=== PATIENT | male | born 1975 | race Caucasian/White ===

== ENCOUNTER 2022-08-10 15:28 | Emergency (ER) | payer BC ==
[2022-08-10] MEDS ORDERED: MORPHINE SULFATE 4 MG INJ IV ONE (16:17)
[2022-08-10] MEDS ORDERED: PROTONIX 40 MG IV IV ONE ×2 (16:17→16:20)
[2022-08-10] MEDS ORDERED: Zofran 4 MG/2 ML VIAL IV ONE (16:17)
[2022-08-10] MEDS ORDERED: GI COCKTAIL 45 ML (Maalox/Lidocaine) PO ONE (16:17)
[2022-08-10] MEDS ORDERED: Zofran 4 MG/2 ML VIAL ONE (16:20)
[2022-08-10] MEDS ORDERED: MORPHINE SULFATE 4 MG INJ ONE (16:21)
[2022-08-10] MEDS ORDERED: XYLOCAINE VISCOUS 2% 15 ML CUP ONE (16:21)
[2022-08-10] MEDS ORDERED: MAALOX ES 30 ML UNIT DOSE ONE (16:21)
[2022-08-10 16:34] LABS: Appearance CLEAR (CLEAR); Bilirubin SMALL (NEGATIVE); Glucose NEGATIVE (NEGATIVE); Ketones LARGE-160 (NEGATIVE); Ph 5.5 (5-6); Protein,Urine Dip 30 (Negative); RBC NEGATIVE Ery/ul (0-5); Specific Gravity >=1.030 (1.005-1.025)
[2022-08-10 16:35] LABS: Dipstick done @ ? MAIN LAB; Nitrite NEGATIVE (NEGATIVE); Urobilinogen 0.2 mg/dL (0-1)
[2022-08-10 16:35] LABS: Absolute Neutrophil Ct (ANC) 5.91 x10^3/uL (1.4-6.9); Basophil (Absolute #) 0.03 x10^3/uL (0-0.4); Eosinophil % 1.2 % (0.00-5.0); Hematocrit 46.9 % (42-50); Hemoglobin 15.7 g/dL (12.5-18.0); Lymphocyte (Absolute #) 1.97 x10^3/uL (1.0-4.6); Lymphocytes % 23.5 % (24.0-44.0); Mean Cell Volume 88.7 fL (78-100); Mean Corpuscular Hemoglobin 29.7 pg (26-32); Mean Corpuscular Hgb Concent. 33.5 g/dL (32-36); Mean Platelet Volume 9.8 fL (7.5-11.0); Monocyte (Absolute #) 0.38 x10^3/uL (0.0-1.3); Monocytes % 4.5 % (0.0-12.0); Neutrophil % 70.3 % (36.0-66.0); Platelet Count 216 x10^3/uL (150-450); Red Blood Count 5.29 x10^6/uL (4.1-5.6); Red Cell Distribution Width 12.2 % (11.5-14.0); White Blood Count 8.4 x10^3/uL (4.0-10.5)
--- NOTE | 2022-08-10 16:51 | XRAY ---
Indication: Abdomen pain and diarrhea. Multiple contiguous axial images obtained through the abdomen and pelvis without contrast. Comparison: None Lung bases demonstrates mild dependent atelectasis and tiny right base calcified granuloma. Heart not enlarged. Stomach is distended with food/fluid. Noncontrasted stomach and bowel loops appear nonobstructed with normal appendix. Mild scattered colonic diverticulosis without diverticulitis. No free fluid/air. Tiny splenic calcified granulomas. Remaining liver, gallbladder, pancreas, spleen, adrenal glands, kidneys, ureters, and bladder are unremarkable for noncontrast exam. Minimal aortic calcifications without AAA. Osseous structures intact with minimal degenerative changes throughout the spine. No ventral or inguinal hernias. Impression: 1. Colonic diverticulosis, minimal arteriosclerotic disease, minimal degenerative spondylosis, and old granulomatous disease. 2. Remaining CT abdomen without contrast exam is negative.
[2022-08-10 16:54] LABS: Epithelial Cells RARE /HPF (FEW); Mucus MANY /HPF (NEGATIVE); RBC 0-2 /HPF (0-2); Sperm PRESENT /HPF (NEGATIVE); WBC 0-2 /HPF (0-5)
[2022-08-10 16:57] LABS: Urine Cultured Indicated? NO
[2022-08-10 16:57] LABS: ALBUMIN 4.2 g/dL (3.5-5.0); ALKALINE PHOSPHATASE 51 U/L (38-126); AMYLASE 60 U/L (30-110); ANION GAP 9.4 MEQ/L (5-15); BLOOD UREA NITROGEN 18 mg/dL (9-20); CHLORIDE 108 mmol/L (98-107); Calcium 8.7 mg/dL (8.4-10.2); Carbon Dioxide 26 mmol/L (22-30); Creatinine 1 1.05 mg/dL (0.66-1.25); EST GLOMERULAR FILTRATION RATE > 60.0 ML/MIN; Glucose 112 mg/dL (74-106); LIPASE 103 U/L (23-300); Potassium 3.3 mmol/L (3.5-5.1); SGOT/AST 32 U/L (17-59); SGPT/ALT 40 U/L (0-50); SODIUM 140 mmol/L (137-145); Total Protein 6.7 g/dL (6.3-8.2)
[2022-08-10] MEDS ORDERED: Sodium Chloride 0.9% 1000 ML 1,000 ML IV STA (17:05)
[2022-08-10] MEDS ORDERED: Sodium Chloride 0.9% 1000 ML 1,000 ML ONE (17:08)
--- NOTE | 2022-08-10 17:51 | ERPHSYRPT ---
- History of Present Illness Time Seen by Provider: 08/10/22 15:42 Historian: patient Exam Limitations: no limitations Patient Subjective Stated Complaint: Pt reports "I have this pressure type pain in the middle of the upper part of my stomach and it goes all the way up my throat. I have had this for 6-7 days. [facility] they told me to come here." Triage Nursing Assessment: Patient ambulated to cot with upright steady gait. Alert and oriented x3. No apparent respiratory distress. Pt complains of epigastric pain that is described as a constant pressure that goes up into his throat for at least 6-7 days. He went to [facility] but they sent him to the ED. Physician History: 46 years old male with history of GERD with esophagitis and sent in ER from urgent care for worsening upper abdominal discomfort off and on for last few weeks which lately is really bad and radiation and burning sensation to the chest and throat. Partial relief with taking omeprazole and Carafate. No fever chills, nausea vomiting or diarrhea reported. Timing/Duration: week(s) (4-6), intermittent, gradual onset, worse Activities at Onset: rest Quality: burning Abdominal Pain Onset Location: epigastric Pain Radiation: chest Severity of Pain-Max: moderate Severity of Pain-Current: moderate Modifying Factors: Improves With: nothing Associated Symptoms: denies symptoms Previous symptoms: same symptoms as today Allergies/Adverse Reactions: No Known Drug Allergies Allergy (Unverified 08/10/22 15:33) Home Medications: Omeprazole 40 mg PO DAILY 08/10/22 [History] Sucralfate 1 gm PO AC 08/10/22 [History] Hx Tetanus, Diphtheria Vaccination/Date Given: No Hx Influenza Vaccination/Date Given: No Immunizations Up to Date: No Travel Risk - International Travel Have you traveled outside of the country in past 3 weeks: No - Coronavirus Screening Are you exhibiting any of the following symptoms?: No Close contact with a COVID-19 positive Pt in past 14-21 Days: No - Vaccine Status Have you recieved a Covid-19 vaccination: Yes Distribution [employer]: [email or web address] - Vaccination Dates Date of 2cond Vaccination (if applicable): unknown - Review of Systems Constitutional: No Symptoms Eyes: No Symptoms Ears, Nose, & Throat: No Symptoms Respiratory: No Symptoms Cardiac: No Symptoms Abdominal/Gastrointestinal: Abdominal Pain Genitourinary Symptoms: No Symptoms Musculoskeletal: No Symptoms Neurological: No Symptoms Psychological: No Symptoms Endocrine: No Symptoms Hematologic/Lymphatic: No Symptoms Immunological/Allergic: No Symptoms - Past Medical History Pertinent Past Medical History: Yes Neurological History: No Pertinent History Cardiac History: No Pertinent History Respiratory History: No Pertinent History Endocrine Medical History: No Pertinent History Musculoskeletal History: Fractures GI Medical History: GERD Psycho-Social History: Anxiety, Depression - Past Surgical History Past Surgical History: Yes Other Surgical History: 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, broken jaw repair - Social History Smoking Status: Former smoker How long have you smoked: 20 years Exposure to second hand smoke: No Drug Use: none Patient Lives Alone: No - Nursing Vital Signs Nursing Vital Signs: Initial Vital Signs Temperature 98 F 08/10/22 15:31 Pulse Rate 78 08/10/22 15:31 Respiratory Rate 16 08/10/22 15:31 Blood Pressure 145/93 08/10/22 15:31 O2 Sat by Pulse Oximetry 97 08/10/22 15:31 Pain Scale Pain Intensity 5 - Physical Exam General Appearance: no apparent distress, alert Eye Exam: PERRL/EOMI Ears, Nose, Throat Exam: normal ENT inspection Neck Exam: normal inspection, full range of motion Respiratory Exam: normal breath sounds, lungs clear Cardiovascular Exam: regular rate/rhythm, normal heart sounds Gastrointestinal/Abdomen Exam: soft, normal bowel sounds, tenderness (Epigastric area), No guarding Back Exam: normal inspection Extremity Exam: normal inspection, normal range of motion Neurologic Exam: alert, oriented x 3, cooperative Skin Exam: normal color, warm SpO2 Interpretation: normal SpO2: 95 O2 Delivery: Room Air Ordered Tests: Active Orders 24 hr Category Date Time Status IV Insertion STAT Care 08/10/22 16:17 Active NPO (ED) STAT Care 08/10/22 16:17 Active ABDOMEN AND PELVIS W/0 CONTRAS [CT] Stat Exams 08/10/22 16:17 Completed AMYLASE Stat Lab 08/10/22 16:25 Completed CBC W DIFF Stat Lab 08/10/22 16:25 Completed CMP Stat Lab 08/10/22 16:25 Completed LIPASE Stat Lab 08/10/22 16:25 Completed Lactic Acid Stat Lab 08/10/22 16:30 Completed TROPONIN Q4H Lab 08/10/22 16:25 Completed TROPONIN Q4H Lab 08/10/22 20:30 Ordered TROPONIN Q4H Lab 08/11/22 00:30 Ordered UA W/RFX CULTURE Stat Lab 08/10/22 Completed Medication Summary Generic Name Dose Route Start Last Admin Trade Name Lukasz PRN Reason Stop Dose Admin Sodium Chloride 1,000 mls @ 999 mls/hr 08/10/22 17:05 08/10/22 17:08 Sodium Chloride 0.9% 1000 Ml IV 08/10/22 18:05 999 mls/hr .Q1H1M STA Administration Discontinued Medications Generic Name Dose Route Start Last Admin Trade Name Lukasz PRN Reason Stop Dose Admin Al Hydrox/Mg Hydrox/Simethicone Confirm 08/10/22 16:21 Mag Hydrox/Al Hydrox/Simeth 30 Ml Udcup Administered 08/10/22 16:22 Dose 30 ml .ROUTE .STK-MED ONE Sodium Chloride Confirm 08/10/22 17:08 Sodium Chloride 0.9% 1000 Ml Administered 08/10/22 17:09 Dose 1,000 mls @ ud .ROUTE .STK-MED ONE Lidocaine HCl Confirm 08/10/22 16:21 Lidocaine Hcl 2% Viscous 15 Ml Udcup Administered 08/10/22 16:22 Dose 15 ml .ROUTE .STK-MED ONE Magnesium Hydroxide 45 ml 08/10/22 16:17 08/10/22 16:23 Mag Hydrx/Alum Hyd/Simeth/Lido 45 Ml Bottle PO 08/10/22 16:18 45 ml STAT ONE Administration Morphine Sulfate 4 mg 08/10/22 16:17 08/10/22 16:23 Morphine Sulfate 4 Mg/Ml Injection IV 08/10/22 16:18 4 mg STAT ONE Administration Morphine Sulfate Confirm 08/10/22 16:21 Morphine Sulfate 4 Mg/Ml Injection Administered 08/10/22 16:22 Dose 4 mg .ROUTE .STK-MED ONE Ondansetron HCl 4 mg 08/10/22 16:17 08/10/22 16:24 Ondansetron Hcl 4 Mg/2 Ml Vial IV 08/10/22 16:18 4 mg STAT ONE Administration Ondansetron HCl Confirm 08/10/22 16:20 Ondansetron Hcl 4 Mg/2 Ml Vial Administered 08/10/22 16:21 Dose 4 mg .ROUTE .STK-MED ONE Pantoprazole Sodium 40 mg 08/10/22 16:17 08/10/22 16:23 Pantoprazole 40 Mg Vial IV 08/10/22 16:18 40 mg STAT ONE Administration Pantoprazole Sodium Confirm 08/10/22 16:20 Pantoprazole 40 Mg Vial Administered 08/10/22 16:21 Dose 40 mg IV .STK-MED ONE Lab/Rad Data: Laboratory Result Diagrams 08/10/22 16:25 08/10/22 16:25 Laboratory Results 08/10/22 08/10/22 08/10/22 Range/Units Unknown 16:30 16:25 WBC (4.0-10.5) x10^3/uL RBC (4.1-5.6) x10^6/uL Hgb (12.5-18.0) g/dL Hct (42-50) % MCV (78-100) fL MCH (26-32) pg MCHC (32-36) g/dL RDW (11.5-14.0) % Plt Count (150-450) x10^3/uL MPV (7.5-11.0) fL Gran % (36.0-66.0) % Immature Gran % (Auto) (0.00-0.4) % Nucleat RBC Rel Count (0.00-0.1) % Eos # (Auto) (0-0.5) x10^3/uL Immature Gran # (Auto) (0.00-0.03) x10^3u/L Absolute Lymphs (auto) (1.0-4.6) x10^3/uL Absolute Monos (auto) (0.0-1.3) x10^3/uL Absolute Nucleated RBC (0.00-0.01) x10^3u/L Lymphocytes % (24.0-44.0) % Monocytes % (0.0-12.0) % Eosinophils % (0.00-5.0) % Basophils % (0.0-0.4) % Absolute Granulocytes (1.4-6.9) x10^3/uL Basophils # (0-0.4) x10^3/uL Sodium (137-145) mmol/L Potassium (3.5-5.1) mmol/L Chloride (98-107) mmol/L Carbon Dioxide (22-30) mmol/L Anion Gap (5-15) MEQ/L BUN (9-20) mg/dL Creatinine (0.66-1.25) mg/dL Estimated GFR ML/MIN Glucose (74-106) mg/dL Lactic Acid 0.7 (0.4-2.0) Calcium (8.4-10.2) mg/dL Total Bilirubin (0.2-1.3) mg/dL AST (17-59) U/L ALT (0-50) U/L Alkaline Phosphatase (38-126) U/L Troponin I < 0.012 (0.000-0.034) ng/mL Serum Total Protein (6.3-8.2) g/dL Albumin (3.5-5.0) g/dL Amylase (30-110) U/L Lipase (23-300) U/L Urinalys Dipstick Clnc MAIN LAB Urine Color YELLOW (YELLOW) Urine Appearance CLEAR (CLEAR) Urine pH 5.5 (5-6) Ur Specific [place] >=1.030 A (1.005-1.025) POC Urine Protein Conf 30 A (Negative) Urine Ketones LARGE-160 A (NEGATIVE) Urine Nitrite NEGATIVE (NEGATIVE) Urine Bilirubin SMALL A (NEGATIVE) Urine Urobilinogen 0.2 (0-1) mg/dL Urine Leukocytes NEGATIVE (NEGATIVE) Urine WBC (Auto) 0-2 (0-5) /HPF Urine RBC (Auto) 0-2 (0-2) /HPF U Hyaline Cast (Auto) 6-10 A (0-2) /LPF U Epithel Cells (Auto) RARE (FEW) /HPF Urine Bacteria (Auto) Not Reportable Urine RBC NEGATIVE (0-5) Thompson/ul Urine Mucus (Auto) MANY A (NEGATIVE) /HPF Urine Sperm (Auto) PRESENT A (NEGATIVE) /HPF Ur Culture Indicated? NO Urine Glucose NEGATIVE (NEGATIVE) mg/dL 08/10/22 08/10/22 Range/Units 16:25 16:25 WBC 8.4 (4.0-10.5) x10^3/uL RBC 5.29 (4.1-5.6) x10^6/uL Hgb 15.7 (12.5-18.0) g/dL Hct 46.9 (42-50) % MCV 88.7 (78-100) fL MCH 29.7 (26-32) pg MCHC 33.5 (32-36) g/dL RDW 12.2 (11.5-14.0) % Plt Count 216 (150-450) x10^3/uL MPV 9.8 (7.5-11.0) fL Gran % 70.3 H (36.0-66.0) % Immature Gran % (Auto) 0.1 (0.00-0.4) % Nucleat RBC Rel Count 0.0 (0.00-0.1) % Eos # (Auto) 0.10 (0-0.5) x10^3/uL Immature Gran # (Auto) 0.01 (0.00-0.03) x10^3u/L Absolute Lymphs (auto) 1.97 (1.0-4.6) x10^3/uL Absolute Monos (auto) 0.38 (0.0-1.3) x10^3/uL Absolute Nucleated RBC 0.00 (0.00-0.01) x10^3u/L Lymphocytes % 23.5 L (24.0-44.0) % Monocytes % 4.5 (0.0-12.0) % Eosinophils % 1.2 (0.00-5.0) % Basophils % 0.4 (0.0-0.4) % Absolute Granulocytes 5.91 (1.4-6.9) x10^3/uL Basophils # 0.03 (0-0.4) x10^3/uL Sodium 140 (137-145) mmol/L Potassium 3.3 L (3.5-5.1) mmol/L Chloride 108 H (98-107) mmol/L Carbon Dioxide 26 (22-30) mmol/L Anion Gap 9.4 (5-15) MEQ/L BUN 18 (9-20) mg/dL Creatinine 1.05 (0.66-1.25) mg/dL Estimated GFR > 60.0 ML/MIN Glucose 112 H (74-106) mg/dL Lactic Acid (0.4-2.0) Calcium 8.7 (8.4-10.2) mg/dL Total Bilirubin 0.70 (0.2-1.3) mg/dL AST 32 (17-59) U/L ALT 40 (0-50) U/L Alkaline Phosphatase 51 (38-126) U/L Troponin I (0.000-0.034) ng/mL Serum Total Protein 6.7 (6.3-8.2) g/dL Albumin 4.2 (3.5-5.0) g/dL Amylase 60 (30-110) U/L Lipase 103 (23-300) U/L Urinalys Dipstick Clnc Urine Color (YELLOW) Urine Appearance (CLEAR) Urine pH (5-6) Ur Specific [place] (1.005-1.025) POC Urine Protein Conf (Negative) Urine Ketones (NEGATIVE) Urine Nitrite (NEGATIVE) Urine Bilirubin (NEGATIVE) Urine Urobilinogen (0-1) mg/dL Urine Leukocytes (NEGATIVE) Urine WBC (Auto) (0-5) /HPF Urine RBC (Auto) (0-2) /HPF U Hyaline Cast (Auto) (0-2) /LPF U Epithel Cells (Auto) (FEW) /HPF Urine Bacteria (Auto) Urine RBC (0-5) Thompson/ul Urine Mucus (Auto) (NEGATIVE) /HPF Urine Sperm (Auto) (NEGATIVE) /HPF Ur Culture Indicated? Urine Glucose (NEGATIVE) mg/dL - Progress Progress: improved Progress Note: 08/10/22 17:48 46 years old is evaluated for upper abdominal pain with radiation to the chest. Patient has a history of GERD and is not very compliant with PPI/Carafate. Not in any distress. Given symptomatic treatment with pain along with GI cocktail and Protonix. Feeling much better on reevaluation and pain is almost completely resolved. Has normal white count, fairly unremarkable chemistries. No UTI but does have positive ketones in the urine which I believe is secondary to dehydration. Given fluids as well. CT abdomen pelvis negative for any acute abdominal pelvic findings. I believe patient has GERD with esophagitis and needs upper GI scope for which patient has appointment with Dr. Pinto next month. Do not think patient needs any further work-up and is stable for discharge with outpatient follow-up. I have advised him to take Pepcid in addition to Protonix if his symptoms do not go away. Discussed signs symptoms of worsening needing return to ER which he seems understanding. Counseled pt/family regarding: lab results, diagnosis, need for follow-up, rad results - Departure Departure Disposition: Home Clinical Impression: GERD with esophagitis Condition: Stable Critical Care Time: No Referrals: MELISA MITCHELL, HARRY [Primary Care Provider] - Follow Up with PCP/3 days Instructions: Severe Abdominal Pain, Adult (DC), Acid Reflux and GERD in Adults (DC) Additional Instructions: Do not take ibuprofen or any other NSAIDs. Continue with Protonix and Carafate. Take Pepcid as needed in addition to this medications. Return to ER for worsening pain, vomiting etc.
[2022-08-10 18:05] VITALS: BP 129/85; PULSE 69; O2SAT 96
== END 2022-08-10 18:12 | disposition home or self-care (01) ==
LOC: ED 15:28
DX: K21.00 Gastro-esophageal reflux disease with esophagitis, without bleeding (principal); R10.10 Upper abdominal pain, unspecified
CPT/HCPCS: 36000; 36415; 74176; 80053; 81015; 82150; 83605; 83690; 84484; 85025; 96374; 96375; 99284; J2270; J2405; A9270-GY

== ENCOUNTER 2022-08-22 05:56 | Day surgery (SDC) | payer BC ==
[2022-08-22] MEDS ORDERED: Lactated Ringers 1,000 ML IV SCH (06:30)
[2022-08-22] MEDS ORDERED: DIPRIVAN 200 MG/20 ML IV ONE (07:50)
--- NOTE | 2022-08-22 08:09 | OP ---
SURGERY DATE/TIME: 08/22/2022 0739 PREOPERATIVE DIAGNOSIS: Abdominal pain and dysphagia. POSTOPERATIVE DIAGNOSIS: Mild to moderate gastritis. PROCEDURE: Esophagogastroduodenoscopy with cold forceps biopsy. SURGEON: Dr. Juan José Juan. ANESTHESIA: Medications were given by the anesthesia department. BRIEF HISTORY: The patient is a 46-year-old white male patient who reports he had abdominal pain for the past several months. He has had ultrasound and CT scans which were negative. He presents now for endoscopic evaluation. The patient was appraised of the risks of the procedure including the risk of perforation, phlebitis, untoward reaction to medication, bleeding and missed lesions. The patient verbalized his understanding and desired to have the procedure performed. DESCRIPTION OF PROCEDURE: The patient was given the medications by the anesthesia department. He had continuous pulse oximetry, ECG monitoring and intermittent blood pressure monitoring during the examination. He was placed in the left lateral decubitus position. A bite block was placed and the flexible Olympus gastroscope was used to intubate the oropharynx. A view of the larynx was obtained and was normal. The scope was easily introduced in the esophagus which appeared to be normal throughout its length. The stomach was entered where normal gastric rugal folds were seen and these distended nicely with insufflation of air. The scope was passed along the greater curvature of the stomach to the antrum. The pylorus was encountered and intubated. Duodenum inspected and found to be normal. The scope is withdrawn towards the stomach again. A retroflex view was obtained of the lesser curvature, fundus and cardia regions of the stomach. Next, the scope was redirected towards the gastric antrum and biopsies were obtained to rule out the presence of Helicobacter pylori-type organisms. The scope was then removed from the patient who tolerated the procedure well and was sent back to the hospital [facility] in good condition.
[2022-08-22 08:34] VITALS: BP 118/86; PULSE 54; O2SAT 100
== END 2022-08-22 08:35 | disposition home or self-care (01) ==
LOC: SDC 05:56
PROVIDERS: ATTEND Family Medicine
DX: K29.70 Gastritis, unspecified, without bleeding (principal); R10.9 Unspecified abdominal pain; R13.10 Dysphagia, unspecified
CPT/HCPCS: J2704

== ENCOUNTER 2023-08-29 16:00 | Emergency (ER) | payer BC ==
--- NOTE | 2023-08-29 16:08 | ERPHSYRPT ---
- History of Present Illness Time Seen by Provider: 08/29/23 16:07 Source: patient Exam Limitations: no limitations Physician History: This is a 47-year-old white male patient who sees Dr. Juan as his primary care provider and presents with 5-day history of fatigue and just wanting to sleep. He denies shortness of breath. He denies chest pain. He states he may have some depression but has never been fully diagnosed. He is not suicidal or homicidal. He has noted allergies and he takes no medications chronically. He has no abdominal pain. He said no nausea vomiting or diarrhea symptoms. There have been no other individuals in the family that have similar symptoms. Patient has an appointment to see Dr. Juan tomorrow, 08/30/2023. However, the patient did not want to wait until tomorrow to have the workup performed. Timing/Duration: day(s) (5) Severity: mild (To moderate) Associated Symptoms: weakness, other (Fatigue), No nausea, No vomiting, No abdominal pain, No shortness of breath, No chest pain, No headaches Allergies/Adverse Reactions: No Known Drug Allergies Allergy (Verified 08/29/23 16:04) Home Medications: No Reportable Medications [No Reported Medications] 08/29/23 [History] Hx Tetanus, Diphtheria Vaccination/Date Given: No Hx Influenza Vaccination/Date Given: No Travel Risk - International Travel Have you traveled outside of the country in past 3 weeks: No - Coronavirus Screening Are you exhibiting any of the following symptoms?: No Close contact with a COVID-19 positive Pt in past 14-21 Days: No - Vaccine Status Have you recieved a Covid-19 vaccination: Yes [employer]: [employer] - Vaccination Dates Date of 2cond Vaccination (if applicable): unknown - Review of Systems Constitutional: Weakness Eyes: No Symptoms Ears, Nose, & Throat: No Symptoms Respiratory: No Symptoms Cardiac: No Symptoms Abdominal/Gastrointestinal: No Symptoms Genitourinary Symptoms: No Symptoms Musculoskeletal: No Symptoms Skin: No Symptoms Neurological: No Symptoms Psychological: No Symptoms, No Suicidal Ideations, No Homicidal Ideations Endocrine: No Symptoms Hematologic/Lymphatic: No Symptoms Immunological/Allergic: No Symptoms All Other Systems: Reviewed and Negative - Past Medical History Pertinent Past Medical History: Yes Neurological History: No Pertinent History ENT History: No Pertinent History Cardiac History: No Pertinent History Respiratory History: No Pertinent History Endocrine Medical History: No Pertinent History Musculoskeletal History: Fractures GI Medical History: GERD History: No Pertinent History Psycho-Social History: Anxiety, Depression Male Reproductive Disorders: No Pertinent History Other Medical History: jaw fx's - Past Surgical History Past Surgical History: Yes Neuro Surgical History: No Pertinent History Cardiac: No Pertinent History Respiratory: No Pertinent History Gastrointestinal: No Pertinent History Genitourinary: No Pertinent History Musculoskeletal: No Pertinent History Male Surgical History: No Pertinent History Other Surgical History: 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, broken jaw repair - Social History Smoking Status: Former smoker How long have you smoked: 20 years Exposure to second hand smoke: No Drug Use: none Patient Lives Alone: No - Nursing Vital Signs Nursing Vital Signs: Initial Vital Signs Pulse Rate 73 08/29/23 16:05 Respiratory Rate 18 08/29/23 16:05 Blood Pressure 147/93 08/29/23 16:05 O2 Sat by Pulse Oximetry 97 08/29/23 16:05 Pain Scale Pain Intensity 0 - Physical Exam General Appearance: no apparent distress, alert, anxiety Eye Exam: PERRL/EOMI, eyes nml inspection Ears, Nose, Throat Exam: normal ENT inspection, moist mucous membranes Neck Exam: normal inspection, non-tender, supple, full range of motion Respiratory Exam: normal breath sounds, lungs clear, airway intact, No chest tenderness, No respiratory distress Cardiovascular Exam: regular rate/rhythm, normal heart sounds, normal peripheral pulses Gastrointestinal/Abdomen Exam: soft, normal bowel sounds, No tenderness Rectal Exam: not done Back Exam: normal inspection, normal range of motion, No CVA tenderness, No vertebral tenderness Extremity Exam: normal inspection, normal range of motion, pelvis stable Neurologic Exam: alert, oriented x 3, cooperative, 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 tested, nml cerebellar function, nml station & gait, other (Patient is somewhat) Skin Exam: normal color, warm, dry Lymphatic Exam: No adenopathy SpO2 Interpretation: normal SpO2: 97 O2 Delivery: Room Air - Course Nursing assessment & vital signs reviewed: Yes EKG Interpreted by Me: RATE (65), Sinus Rhythm, NORMAL AXIS, NORMAL INTERVALS, NORMAL QRS, NORMAL ST-T, Other (No acute ischemic changes on today's twelve-lead EKG.) Ordered Tests: Active Orders 24 hr Category Date Time Status EKG-ER Only STAT Care 08/29/23 16:21 Active IV Insertion STAT Care 08/29/23 16:21 Active BLOOD CULTURE Stat Lab 08/29/23 16:45 Received CBC W DIFF Stat Lab 08/29/23 Completed CMP Stat Lab 08/29/23 Completed Lactic Acid Stat Lab 08/29/23 16:28 Completed MONO SCREEN Stat Lab 08/29/23 Completed T4 (Thyroxine) Stat Lab 08/29/23 Completed TROPONIN Q4H Lab 08/29/23 Completed TROPONIN Q4H Lab 08/29/23 20:30 Ordered TROPONIN Q4H Lab 08/30/23 00:30 Ordered TSH [TSH, 3RD Generation] Stat Lab 08/29/23 16:34 Completed UA W/RFX UR CULTURE Stat Lab 08/29/23 17:54 Completed Medication Summary Generic Name Dose Route Start Last Admin Trade Name Freq PRN Reason Stop Dose Admin Norepinephrine/Dextrose 8 mg in 250 mls @ 15 mls/hr 08/29/23 17:41 Norepinephrine 8 Mg/250 Ml-D5w IV 09/28/23 17:40 .[id number] PRN HYPOTENSION Protocol 8 MCG/MIN Discontinued Medications Generic Name Dose Route Start Last Admin Trade Name Freq PRN Reason Stop Dose Admin Sodium Chloride 1,000 mls @ 999 mls/hr 08/29/23 16:21 08/29/23 17:54 Sodium Chloride 0.9% 1000 Ml IV 08/29/23 17:21 Infused .[id number] STA Infusion Sodium Chloride Confirm 08/29/23 16:33 Sodium Chloride 0.9% 1000 Ml Administered 08/29/23 16:34 Dose 1,000 mls @ ud .ROUTE .K-MED ONE Lab/Rad Data: Laboratory Result Diagrams 08/29/23 Unknown 08/29/23 Unknown Laboratory Results 08/29/23 08/29/23 08/29/23 Range/Units Unknown Unknown Unknown WBC (4.0-10.5) x10^3/uL RBC (4.1-5.6) x10^6/uL Hgb (12.5-18.0) g/dL Hct (42-50) % MCV (78-100) fL MCH (26-32) pg MCHC (32-36) g/dL RDW (11.5-14.0) % Plt Count (150-450) x10^3/uL MPV (7.5-11.0) fL Gran % (36.0-66.0) % Immature Gran % (Auto) (0.00-0.4) % Nucleat RBC Rel Count (0.00-0.1) % Eos # (Auto) (0-0.5) x10^3/uL Immature Gran # (Auto) (0.00-0.03) x10^3u/L Absolute Lymphs (auto) (1.0-4.6) x10^3/uL Absolute Monos (auto) (0.0-1.3) x10^3/uL Absolute Nucleated RBC (0.00-0.01) x10^3u/L Lymphocytes % (24.0-44.0) % Monocytes % (0.0-12.0) % Eosinophils % (0.00-5.0) % Basophils % (0.0-0.4) % Absolute Granulocytes (1.4-6.9) x10^3/uL Basophils # (0-0.4) x10^3/uL Sodium (137-145) mmol/L Potassium (3.5-5.1) mmol/L Chloride (98-107) mmol/L Carbon Dioxide (22-30) mmol/L Anion Gap (5-15) MEQ/L BUN (9-20) mg/dL Creatinine (0.66-1.25) mg/dL Estimated GFR ML/MIN Glucose (74-106) mg/dL Lactic Acid (0.4-2.0) Calcium (8.4-10.2) mg/dL Total Bilirubin (0.2-1.3) mg/dL AST (17-59) U/L ALT (0-50) U/L Alkaline Phosphatase (38-126) U/L Troponin I < 0.012 (0.000-0.034) ng/mL Serum Total Protein (6.3-8.2) g/dL Albumin (3.5-5.0) g/dL Thyroxine (T4) 8.85 (5.53-10.96) ug/dL TSH 3rd Generation (0.47-4.68) mIU/L Urine Color (Yellow) Urine Appearance (Clear) Urine pH (4.6-8.0) Ur Specific [place] (1.005-1.030) Urine Protein (Negative) Urine Glucose (UA) (Negative) mg/dL Urine Ketones (Negative) Urine Blood (Negative) Urine Nitrite (Negative) Urine Bilirubin (Negative) Urine Urobilinogen (0.2) mg/dL Ur Leukocyte Esterase (Negative) Urine Microscopic RBC (0-5) /HPF Urine Microscopic WBC (0-5) /HPF Ur Epithelial Cells (None Seen) /HPF Urine Bacteria (None Seen) /HPF Urine Culture Reflexed (NO) Monoscreen NEGATIVE (NEGATIVE) Influenza Type A Ag (NEGATIVE) Influenza Type B Ag (NEGATIVE) RSV (PCR) (NEGATIVE) SARS-CoV-2 (PCR) (NEGATIVE) 08/29/23 08/29/23 08/29/23 Range/Units Unknown Unknown 17:54 WBC 10.2 (4.0-10.5) x10^3/uL RBC 5.56 (4.1-5.6) x10^6/uL Hgb 16.5 (12.5-18.0) g/dL Hct 49.6 (42-50) % MCV 89.2 (78-100) fL MCH 29.7 (26-32) pg MCHC 33.3 (32-36) g/dL RDW 12.4 (11.5-14.0) % Plt Count 214 (150-450) x10^3/uL MPV 11.0 (7.5-11.0) fL Gran % 64.5 (36.0-66.0) % Immature Gran % (Auto) 0.2 (0.00-0.4) % Nucleat RBC Rel Count 0.0 (0.00-0.1) % Eos # (Auto) 0.20 (0-0.5) x10^3/uL Immature Gran # (Auto) 0.02 (0.00-0.03) x10^3u/L Absolute Lymphs (auto) 2.79 (1.0-4.6) x10^3/uL Absolute Monos (auto) 0.56 (0.0-1.3) x10^3/uL Absolute Nucleated RBC 0.00 (0.00-0.01) x10^3u/L Lymphocytes % 27.4 (24.0-44.0) % Monocytes % 5.5 (0.0-12.0) % Eosinophils % 2.0 (0.00-5.0) % Basophils % 0.4 (0.0-0.4) % Absolute Granulocytes 6.59 (1.4-6.9) x10^3/uL Basophils # 0.04 (0-0.4) x10^3/uL Sodium 136 L (137-145) mmol/L Potassium 3.6 (3.5-5.1) mmol/L Chloride 104 (98-107) mmol/L Carbon Dioxide 23 (22-30) mmol/L Anion Gap 12.8 (5-15) MEQ/L BUN 19 (9-20) mg/dL Creatinine 0.81 (0.66-1.25) mg/dL Estimated GFR 108.1 ML/MIN Glucose 117 H (74-106) mg/dL Lactic Acid (0.4-2.0) Calcium 9.2 (8.4-10.2) mg/dL Total Bilirubin 0.40 (0.2-1.3) mg/dL AST 35 (17-59) U/L ALT 40 (0-50) U/L Alkaline Phosphatase 53 (38-126) U/L Troponin I (0.000-0.034) ng/mL Serum Total Protein 7.2 (6.3-8.2) g/dL Albumin 4.5 (3.5-5.0) g/dL Thyroxine (T4) (5.53-10.96) ug/dL TSH 3rd Generation (0.47-4.68) mIU/L Urine Color Yellow (Yellow) Urine Appearance Clear (Clear) Urine pH 5.5 (4.6-8.0) Ur Specific [place] 1.020 (1.005-1.030) Urine Protein Negative (Negative) Urine Glucose (UA) Negative (Negative) mg/dL Urine Ketones Negative (Negative) Urine Blood Negative (Negative) Urine Nitrite Negative (Negative) Urine Bilirubin Negative (Negative) Urine Urobilinogen 0.2 (0.2) mg/dL Ur Leukocyte Esterase Negative (Negative) Urine Microscopic RBC NONE SEEN (0-5) /HPF Urine Microscopic WBC 0-2 (0-5) /HPF Ur Epithelial Cells Rare (None Seen) /HPF Urine Bacteria None Seen (None Seen) /HPF Urine Culture Reflexed NO (NO) Monoscreen (NEGATIVE) Influenza Type A Ag (NEGATIVE) Influenza Type B Ag (NEGATIVE) RSV (PCR) (NEGATIVE) SARS-CoV-2 (PCR) (NEGATIVE) 08/29/23 08/29/23 08/29/23 Range/Units 17:05 16:34 16:28 WBC (4.0-10.5) x10^3/uL RBC (4.1-5.6) x10^6/uL Hgb (12.5-18.0) g/dL Hct (42-50) % MCV (78-100) fL MCH (26-32) pg MCHC (32-36) g/dL RDW (11.5-14.0) % Plt Count (150-450) x10^3/uL MPV (7.5-11.0) fL Gran % (36.0-66.0) % Immature Gran % (Auto) (0.00-0.4) % Nucleat RBC Rel Count (0.00-0.1) % Eos # (Auto) (0-0.5) x10^3/uL Immature Gran # (Auto) (0.00-0.03) x10^3u/L Absolute Lymphs (auto) (1.0-4.6) x10^3/uL Absolute Monos (auto) (0.0-1.3) x10^3/uL Absolute Nucleated RBC (0.00-0.01) x10^3u/L Lymphocytes % (24.0-44.0) % Monocytes % (0.0-12.0) % Eosinophils % (0.00-5.0) % Basophils % (0.0-0.4) % Absolute Granulocytes (1.4-6.9) x10^3/uL Basophils # (0-0.4) x10^3/uL Sodium (137-145) mmol/L Potassium (3.5-5.1) mmol/L Chloride (98-107) mmol/L Carbon Dioxide (22-30) mmol/L Anion Gap (5-15) MEQ/L BUN (9-20) mg/dL Creatinine (0.66-1.25) mg/dL Estimated GFR ML/MIN Glucose (74-106) mg/dL Lactic Acid 1.4 (0.4-2.0) Calcium (8.4-10.2) mg/dL Total Bilirubin (0.2-1.3) mg/dL AST (17-59) U/L ALT (0-50) U/L Alkaline Phosphatase (38-126) U/L Troponin I (0.000-0.034) ng/mL Serum Total Protein (6.3-8.2) g/dL Albumin (3.5-5.0) g/dL Thyroxine (T4) (5.53-10.96) ug/dL TSH 3rd Generation 1.560 (0.47-4.68) mIU/L Urine Color (Yellow) Urine Appearance (Clear) Urine pH (4.6-8.0) Ur Specific [place] (1.005-1.030) Urine Protein (Negative) Urine Glucose (UA) (Negative) mg/dL Urine Ketones (Negative) Urine Blood (Negative) Urine Nitrite (Negative) Urine Bilirubin (Negative) Urine Urobilinogen (0.2) mg/dL Ur Leukocyte Esterase (Negative) Urine Microscopic RBC (0-5) /HPF Urine Microscopic WBC (0-5) /HPF Ur Epithelial Cells (None Seen) /HPF Urine Bacteria (None Seen) /HPF Urine Culture Reflexed (NO) Monoscreen (NEGATIVE) Influenza Type A Ag NEGATIVE (NEGATIVE) Influenza Type B Ag NEGATIVE (NEGATIVE) RSV (PCR) NEGATIVE (NEGATIVE) SARS-CoV-2 (PCR) NEGATIVE (NEGATIVE) - Progress Progress: improved, re-examined Progress Note: 08/29/23 16:38 This patient's medical issue is 1 of moderate complexity. The level complex in the workup performed is based on review of the patient's past medical history, review the patient's medication list, reviewed patient's drug allergy list, history present illness and physical findings on examination. Workup in this patient includes placement of intravenous line, infusion of normal saline solution, twelve-lead EKG, troponin level, CBC, CMP, urinalysis, thyroid function test, viral swabs and monotest. 08/29/23 19:25 I reviewed and interpreted the patient's laboratory study results. There is no evidence of any acute, emergent medical issues. Counseled pt/family regarding: lab results, diagnosis, need for follow-up Medical Desision Making - Diagnostic Testing Diagnostic test were ordered, analyzed, and reviewed by me: Yes - Risk of complications The pt has a mod risk of morbidity or mortality based on: Need for prescription drug management - Departure Departure Disposition: Home Clinical Impression: Weakness Condition: Stable Critical Care Time: No Referrals: MELISA MITCHELL NP [Primary Care Provider] - Follow up/PCP as directed Additional Instructions: Drink plenty fluids. Keep your appointment with your primary care provider tomorrow, 08/30/2023.
[2023-08-29] MEDS ORDERED: Sodium Chloride 0.9% 1000 ML 1,000 ML IV STA (16:21)
[2023-08-29] MEDS ORDERED: Sodium Chloride 0.9% 1000 ML 1,000 ML ONE (16:33)
[2023-08-29 17:16] LABS: Absolute Neutrophil Ct (ANC) 6.59 x10^3/uL (1.4-6.9); BASOPHIL % 0.4 % (0.0-0.4); Basophil (Absolute #) 0.04 x10^3/uL (0-0.4); Hematocrit 49.6 % (42-50); Hemoglobin 16.5 g/dL (12.5-18.0); IMMATURE GRAN # 0.02 x10^3u/L (0.00-0.03); IMMATURE GRAN % 0.2 % (0.00-0.4); Lymphocyte (Absolute #) 2.79 x10^3/uL (1.0-4.6); Lymphocytes % 27.4 % (24.0-44.0); Mean Cell Volume 89.2 fL (78-100); Mean Corpuscular Hemoglobin 29.7 pg (26-32); Mean Corpuscular Hgb Concent. 33.3 g/dL (32-36); Monocyte (Absolute #) 0.56 x10^3/uL (0.0-1.3); Monocytes % 5.5 % (0.0-12.0); Neutrophil % 64.5 % (36.0-66.0); Platelet Count 214 x10^3/uL (150-450); Red Blood Count 5.56 x10^6/uL (4.1-5.6); Red Cell Distribution Width 12.4 % (11.5-14.0); White Blood Count 10.2 x10^3/uL (4.0-10.5)
[2023-08-29 17:30] LABS: ALBUMIN 4.5 g/dL (3.5-5.0); ANION GAP 12.8 MEQ/L (5-15); BILIRUBIN,TOTAL 0.4 mg/dL (0.2-1.3); Calcium 9.2 mg/dL (8.4-10.2); Creatinine 1 0.81 mg/dL (0.66-1.25); EST GLOMERULAR FILTRATION RATE 108.1 ML/MIN; Potassium 3.6 mmol/L (3.5-5.1); Total Protein 7.2 g/dL (6.3-8.2)
[2023-08-29] MEDS ORDERED: NOREPINEPHRINE 8 MG/250 ML-D5W 8 MG/250 ML PLAST..BAG IV PRN (17:41)
[2023-08-29 17:50] LABS: INFLUENZA A NEGATIVE (NEGATIVE); INFLUENZA B NEGATIVE (NEGATIVE); RESPIRATORY SYNCTIAL VIRUS NEGATIVE (NEGATIVE); SARS-CoV-2 Xpert Express NEGATIVE (NEGATIVE)
[2023-08-29 19:13] LABS: Appearance Clear (Clear); Bilirubin Negative (Negative); Blood Negative (Negative); Glucose, Urine Negative (Negative); Ketones Negative (Negative); Leukocyte Esterase Negative (Negative); Nitrite Negative (Negative); Ph 5.5 (4.6-8.0); Protein,Urine Dip Negative (Negative); Urobilinogen 0.2 mg/dL (0.2)
[2023-08-29 19:19] VITALS: BP 115/85; PULSE 61; RESP 14
[2023-08-29 19:22] LABS: Bacteria None Seen /HPF (None Seen); Epithelial Cells Rare /HPF (None Seen); RBC NONE SEEN /HPF (0-5); WBC 0-2 /HPF (0-5)
[2023-08-29 19:23] LABS: ADD URINE CULTURE? NO (NO)
[2023-08-29 19:28] VITALS: O2SAT 97
== END 2023-08-29 19:41 | disposition home or self-care (01) ==
LOC: ED 16:00
DX: R53.1 Weakness (principal); R53.83 Other fatigue
CPT/HCPCS: 0241U; 36000; 36415; 80053; 81001; 83605; 84436; 84443; 84484; 85025; 86308; 87040; 93005; 96360; 99284